=== PATIENT | female | born 1985 | race Hispanic/Latino ===

== ENCOUNTER 2018-09-21 21:02 | Emergency (ER) | payer OTHER ==
--- OUTSIDE RECORDS SUMMARY | 2018-09-21 21:04 | XMS REPORT ---
:1985 [facility] Address [address] [place] [address] [place] [address] Care Team Providers Name Role Phone Unavailable Unavailable Unavailable Problems This patient has no known problems. Allergies, Adverse Reactions, Alerts This patient has no known allergies or adverse reactions. Medications This patient has no known medications.
[2018-09-21 22:26] LABS: Urine Blood 2+ (NEG); Urine Glucose NEGATIVE (NEG); Urine Protein TRACE (NEG)
[2018-09-21] MEDS ORDERED: PROMETHAZINE 25 MG TABLET ONE (22:29)
[2018-09-21] MEDS ORDERED: OSELTAMIVIR 75 MG CAP ONE (22:29)
[2018-09-21] MEDS ORDERED: HYDROCODONE/CHLORPHEN 5 ML/OSYR ONE (22:29)
--- NOTE | 2018-09-21 22:31 | ER ---
Nurse's Notes [facility] Name: Lauren Miller Age: 33 yrs Sex: Female : 1985 Arrival Date: 09/21/2018 Time: 21:03 Bed 15 Private MD: Diagnosis: Influenza due to other identified influenza virus Presentation: 09/21 21:04 Presenting complaint: Patient states: Fever x 2 days, dry cough, pain to chest from lp1 coughing; "Just talking I feel like I get really winded". Transition of care: patient was not received from another setting of care. Onset of symptoms was September 19, 2018. Risk Assessment: Do you want to hurt yourself or someone else? Patient reports no desire to harm self or others. Initial Sepsis Screen: Does the patient meet any 2 criteria? No. Patient's initial sepsis screen is negative. Does the patient have a suspected source of infection? No. Patient's initial sepsis screen is negative. Care prior to arrival: None. 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 - Social history:: Smoking status: Patient uses tobacco products, denies chronic smoking, but will smoke occasionally. - Ebola Screening: : No symptoms or risks identified at this time. Screenin:10 Abuse screen: Denies threats or abuse. Nutritional screening: No deficits noted. jb4 Tuberculosis screening: No symptoms or risk factors identified. Fall Risk None identified. Assessment: 21:10 General: Appears in no apparent distress. uncomfortable, Behavior is calm, cooperative, jb4 appropriate for age. Pain: Complains of pain in forehead and anterior aspect of left upper chest Pain does not radiate. Pain currently is 8 out of 10 on a pain scale. Quality of pain is described as pressure, stabbing. Neuro: Level of Consciousness is awake, alert, obeys commands, Oriented to person, place, time, situation. Cardiovascular: Patient's skin is warm and dry. Respiratory: Airway is patent Respiratory effort is even, unlabored, Respiratory pattern is regular, symmetrical, Breath sounds are clear bilaterally. GI: Reports nausea. : No signs and/or symptoms were reported regarding the genitourinary system. EENT: No signs and/or symptoms were reported regarding the EENT system. Derm: Skin is intact, Skin is pink, warm \\T\\ dry. Musculoskeletal: Circulation, motion, and sensation intact. 22:00 Reassessment: Patient appears in no apparent distress at this time. Patient and/or jb4 family updated on plan of care and expected duration. Pain level reassessed. Patient is alert, oriented x 3, equal unlabored respirations, skin warm/dry/pink. 22:42 Reassessment: Patient appears in no apparent distress at this time. Patient and/or jb4 family updated on plan of care and expected duration. Pain level reassessed. Patient is alert, oriented x 3, equal unlabored respirations, skin warm/dry/pink. Vital Signs: 21:06 BP 141 / 88; Pulse 113; Resp 18; Temp 100(O); Pulse Ox 98% on R/A; Weight 92.99 kg; lp1 Height 5 ft. 7 in. (170.18 cm); Pain 8/10; 22:21 BP 133 / 81; Pulse 100; Resp 18; Pulse Ox 97% ; jb4 21:06 Body Mass Index 32.11 (92.99 kg, 170.18 cm) lp1 ED Course: 21:03 Patient arrived in ED. do 21:05 Triage completed. lp1 21:07 Arm band placed on right wrist. lp1 21:10 Patient has correct armband on for positive identification. Bed in low position. Call jb4 light in reach. Side rails up X 1. Pulse ox on. NIBP on. 21:17 Tay Salas, RN is Primary Nurse. jb4 21:32 Pinky Buckley FNP-C is PHCP. snw 21:32 Trever Avery MD is Attending Physician. snw 21:51 XRAY Chest Pa And Lat (2 Views) In Process Unspecified. EDMS 22:43 No provider procedures requiring assistance completed. Patient did not have IV access jb4 during this emergency room visit. Administered Medications: 22: Drug: Tamiflu 75 mg Route: PO; jb4 :44 Follow up: Response: No adverse reaction jb4 22: Drug: Tussionex Pennkinetic ER 5 ml Route: PO; jb4 :44 Follow up: Response: No adverse reaction; Marked relief of symptoms jb4 22: Drug: Phenergan 25 mg Route: PO; jb4 :44 Follow up: Response: No adverse reaction; Nausea is decreased jb4 Outcome: :31 Discharge ordered by . stevo 22:43 Discharged to home ambulatory, with significant other. jb4 :43 Condition: stable :43 Discharge instructions given to patient, significant other, Instructed on discharge instructions, follow up and referral plans. medication usage, Demonstrated understanding of instructions, follow-up care, medications, Prescriptions given X 2. 22:45 Patient left the ED. jb4 Signatures: Dispatcher [employer] EDWI Pinky Buckley, KILN PUSHER-C KILN PUSHER-Csnw Adriana Hood, RN RN lp1 Elyssa Rodriguez James, RN RN jb4
--- NOTE | 2018-09-21 22:31 | EDPHYS ---
Physician Documentation [facility] Name: Lauren Miller Age: 33 yrs Sex: Female : 1985 Arrival Date: 09/21/2018 Time: 21:03 Bed 15 Private MD: ED Physician Trever Avery HPI: 09/21 22:09 This 33 yrs old Female presents to ER via Wheelchair with complaints of Fever, snw Shortness Of Breath, Cough, Chest Pain. 22:09 The patient reports fever, that was measured at 102.6 degrees Fahrenheit. Onset: The snw symptoms/episode began/occurred suddenly. Modifying factors: The patient has had contact with sick. Severity of symptoms: At their worst the symptoms were moderate. It is unknown whether or not the patient has had similar symptoms in the past. The patient has been recently seen by a physician: 2 week(s) ago, with similar presenting complaints, and apparently given a diagnosis of Sinusitis, was given a prescription for antibiotics. 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 - Social history:: Smoking status: Patient uses tobacco products, denies chronic smoking, but will smoke occasionally. - Ebola Screening: : No symptoms or risks identified at this time. ROS: 22:09 Eyes: Negative for injury, pain, redness, and discharge, ENT: Negative for injury, snw pain, and discharge, Neck: Negative for injury, pain, and swelling, Cardiovascular: Negative for chest pain, palpitations, and edema. 22:09 Abdomen/GI: Negative for abdominal pain, nausea, vomiting, diarrhea, and constipation, Back: Negative for injury and pain, : Negative for injury, bleeding, discharge, and swelling, MS/Extremity: Negative for injury and deformity, Skin: Negative for injury, rash, and discoloration. 22:09 Constitutional: Positive for body aches, fatigue, fever, malaise. 22:09 Respiratory: Positive for cough, shortness of breath, on exertion. 22:09 Neuro: Positive for headache. Exam: 22:02 Constitutional: This is a well developed, well nourished patient who is awake, alert, snw and in no acute distress. Head/Face: Normocephalic, atraumatic. Eyes: Pupils equal round and reactive to light, extra-ocular motions intact. Lids and lashes normal. Conjunctiva and sclera are non-icteric and not injected. Cornea within normal limits. Periorbital areas with no swelling, redness, or edema. ENT: Nares patent. No nasal discharge, no septal abnormalities noted. Tympanic membranes are normal and external auditory canals are clear. Oropharynx with no redness, swelling, or masses, exudates, or evidence of obstruction, uvula midline. Mucous membranes moist. Neck: Trachea midline, no thyromegaly or masses palpated, and no cervical lymphadenopathy. Supple, full range of motion without nuchal rigidity, or vertebral point tenderness. No Meningismus. Chest/axilla: Normal chest wall appearance and motion. Nontender with no deformity. No lesions are appreciated. 22:02 Respiratory: Lungs have equal breath sounds bilaterally, clear to auscultation and percussion. No rales, rhonchi or wheezes noted. No increased work of breathing, no retractions or nasal flaring. Abdomen/GI: Soft, non-tender, with normal bowel sounds. No distension or tympany. No guarding or rebound. No evidence of tenderness throughout. Back: No spinal tenderness. No costovertebral tenderness. Full range of motion. Skin: Warm, dry with normal turgor. Normal color with no rashes, no lesions, and no evidence of cellulitis. MS/ Extremity: Pulses equal, no cyanosis. Neurovascular intact. Full, normal range of motion. Neuro: Awake and alert, GCS 15, oriented to person, place, time, and situation. Cranial nerves II-XII grossly intact. Motor strength 5/5 in all extremities. Sensory grossly intact. Cerebellar exam normal. Normal gait. Psych: Awake, alert, with orientation to person, place and time. Behavior, mood, and affect are within normal limits. 22:02 Cardiovascular: Rate: tachycardic, Rhythm: regular, Pulses: no pulse deficits are appreciated. Vital Signs: 21:06 BP 141 / 88; Pulse 113; Resp 18; Temp 100(O); Pulse Ox 98% on R/A; Weight 92.99 kg; lp1 Height 5 ft. 7 in. (170.18 cm); Pain 8/10; 22:21 BP 133 / 81; Pulse 100; Resp 18; Pulse Ox 97% ; jb4 21:06 Body Mass Index 32.11 (92.99 kg, 170.18 cm) lp1 MDM: 21:33 Patient medically screened. adonay 22:36 Data reviewed: vital signs, nurses notes. Data interpreted: Pulse oximetry: on room air snw is 97 %. Interpretation: normal. Counseling: I had a detailed discussion with the patient and/or guardian regarding: the historical points, exam findings, and any diagnostic results supporting the discharge/admit diagnosis, the presence of at least one elevated blood pressure reading (>120/80) during this emergency department visit, lab results, radiology results, the need for outpatient follow up, to return to the emergency department if symptoms worsen or persist or if there are any questions or concerns that arise at home. 09/21 21:33 Order name: Flu; Complete Time: 22:14 snw 09/21 22:11 Order name: Urine Dipstick--Ancillary (enter results); Complete Time: 22:37 mw2 09/21 21:33 Order name: XRAY Chest Pa And Lat (2 Views) snw 09/21 22:11 Order name: Urine --Ancillary (enter results); Complete Time: 22:37 mw2 09/21 21:33 Order name: Urine Test (obtain specimen); Complete Time: 22:12 snw 09/21 21:33 Order name: Urine Dipstick-Ancillary (obtain specimen); Complete Time: 22:12 snw Administered Medications: 22:22 Drug: Tamiflu 75 mg Route: PO; jb4 22:44 Follow up: Response: No adverse reaction jb4 22:22 Drug: Tussionex Pennkinetic ER 5 ml Route: PO; jb4 22:44 Follow up: Response: No adverse reaction; Marked relief of symptoms jb4 22:22 Drug: Phenergan 25 mg Route: PO; jb4 22:44 Follow up: Response: No adverse reaction; Nausea is decreased jb4 Disposition: 09/21/18 22:31 Discharged to Home. Impression: Influenza due to other identified influenza virus. - Condition is Stable. - Discharge Instructions: Influenza, Adult. - Prescriptions for Tamiflu 75 mg Oral Capsule - take 1 capsule by ORAL route every 12 hours for 5 days; 10 capsule. promethazine 25 mg Oral Tablet - take 1 tablet by ORAL route every 6 hours As needed; 20 tablet. - Work release form, Medication Reconciliation Form, Thank You Letter, Antibiotic Education, Prescription Opioid Use form. - Follow up: Private Physician; When: 2 - 3 days; Reason: Recheck today's complaints, Continuance of care, Re-evaluation by your physician. Follow up: Emergency Department; When: As needed; Reason: Worsening of condition. Signatures: Dispatcher [employer] EDMS Trever Avery MD MD cha Therrien, Shelly, SALES AUDIT CLERK-C SALES AUDIT CLERK-Csnw Adriana Hood RN RN lp1 Tay Salas RN RN jb4 Corrections: (The following items were deleted from the chart) 22:45 22:31 09/21/2018 22:31 Discharged to Home. Impression: Influenza due to other jb4 identified influenza virus. Condition is Stable. Forms are Medication Reconciliation Form, Thank You Letter, Antibiotic Education, Prescription Opioid Use. Follow up: Private Physician; When: 2 - 3 days; Reason: Recheck today's complaints, Continuance of care, Re-evaluation by your physician. Follow up: Emergency Department; When: As needed; Reason: Worsening of condition. snw
--- NOTE | 2018-09-22 08:25 | RAD REPORT ---
EXAM DESCRIPTION: RAD - Chest Pa And Lat (2 Views) - 09/21/2018 9:52 pm CLINICAL HISTORY: Cough;Fever Chest pain. COMPARISON: Chest Single View dated 09/01/2017 FINDINGS: The lungs are clear. The heart is normal in size. No displaced fractures. IMPRESSION: No acute or concerning finding suspected.
== END 2018-09-21 22:45 | disposition home or self-care (01) ==
LOC: ER 21:02
DX: J10.1 Influenza due to other identified influenza virus with other respiratory manifestations (principal); Z72.0 Tobacco use
CPT/HCPCS: 71046; 81003; 81025; 87804; 99284

== ENCOUNTER 2020-10-05 06:18 | Emergency (ER) | payer OTHER ==
--- OUTSIDE RECORDS SUMMARY | 2020-10-05 06:20 | XMS REPORT | Continuity of Care Document ---
:1985 Author Organization [facility] Address [address] [place] [address] [place] [address] Care Team Providers Name Role Phone [facility]ON[facility] TECH Attending Clinician Pob1, Care Clinic Attending Clinician Unavailable Problems This patient has no known problems. Allergies, Adverse Reactions, Alerts This patient has no known allergies or adverse reactions. Medications This patient has no known medications. Procedures This patient has no known procedures. Encounters Start End Encounter Admission Attending Care Care Encounter Source Date/Time Date/Time Type Type Clinicians Facility Department ID 2020-01-24 2020-01-24 Telephone Heber [facility] [id number] 00:00:00 00:00:00 [facility] [id number] [place] [id number] Professio [phone] [address]al [address] 2020-01-22 2020-01-22 Urgent Pob1, Acute [facility] [id number] 09:24:01 13:00:11 [facility] [id number] [place] [id number] Professio [phone] nal [address] Results This patient has no known results.
[2020-10-05 06:37] LABS: Urine Blood 1+ (Negative); Urine Glucose Negative (Negative); Urine Protein Negative (Negative); Urine Specific Gravity >=1.030 (1.005-1.030)
[2020-10-05] MEDS ORDERED: PROMETHAZINE INJ 25 MG/ML AMP ONE (07:26)
[2020-10-05] MEDS ORDERED: NA CHLORIDE 0.9% 1,000 ML ONE (07:26)
[2020-10-05 07:37] LABS: Protime INR 1.03
[2020-10-05 07:38] LABS: Absolute Lymphocytes (CBC) 2.6 K/uL (0.7-4.9); Basophils % 0.8 % (0-1.3); Hematocrit 41.6 % (36.0-45.0); Lymphocytes % 29.1 % (15.3-44.8); MPV 7.9 fL (7.6-11.3); RBC Red Blood Cell Count 4.63 M/uL (3.86-4.86)
[2020-10-05 07:53] LABS: ALT/SGPT 49 U/L (12-78); AST/SGOT 18 U/L (15-37); Albumin 3.7 g/dL (3.4-5.0); Alkaline Phosphatase 55 U/L (45-117); BUN Blood Urea Nitrogen 9 mg/dL (7-18); Bicarbonate 23 mmol/L (21-32); Bilirubin Direct 0.2 mg/dL (0-0.2); Bilirubin Total 1.1 mg/dL (0.2-1.0); Glucose Level 98 mg/dL (74-106); Magnesium 2.4 mg/dL (1.8-2.4); NT PRO-BNP 12 pg/mL (<125); Potassium 3.7 mmol/L (3.5-5.1); Protein, Total 7.1 g/dL (6.4-8.2); Sodium Level 140 mmol/L (136-145); Troponin (Emerg Dept Use Only) < 0.02 ng/mL (0.0-0.045)
--- NOTE | 2020-10-05 08:03 | RAD REPORT ---
EXAM DESCRIPTION: CT - Head Brain Wo Cont - 10/05/2020 7:35 am CLINICAL HISTORY: DIZZINESS Headache, drowsiness COMPARISON: No comparisons TECHNIQUE: All CT scans are performed using dose optimization technique as appropriate and may inclu de automated exposure control or mA/KV adjustment according to patient size. FINDINGS: No intracranial hemorrhage, hydrocephalus or extra-axial fluid collection.No areas of brai n edema or evidence of midline shift. The paranasal sinuses and mastoids are clear. The calvarium is intact. IMPRESSION: No acute intracranial abnormality.
--- NOTE | 2020-10-05 08:59 | ER ---
Nurse's Notes [facility] Name: Lauren Miller Age: 35 yrs Sex: Female : 1985 Arrival Date: 10/05/2020 Time: 06:21 Bed 16 Private MD: Diagnosis: Chest pain, unspecified;Dizziness and giddiness;Vomiting Presentation: 10/05 06:38 Chief complaint: Patient states: complains of chest pain that started 4 hours ago along jm8 with n/v that has been going on intermittently for 3 months. Coronavirus screen: Client denies travel out of the [place] in the last 14 days. Ebola Screen: Patient negative for fever greater than or equal to 101.5 degrees Fahrenheit, and additional compatible Ebola Virus Disease symptoms Patient denies exposure to infectious person. Patient denies travel to an Ebola-affected area in the 21 days before illness onset. Initial Sepsis Screen: Does the patient meet any 2 criteria? No. Patient's initial sepsis screen is negative. Does the patient have a suspected source of infection? No. Patient's initial sepsis screen is negative. Risk Assessment: Do you want to hurt yourself or someone else? Patient reports no desire to harm self or others. Onset of symptoms was October 05, 2020 at 01:00. 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 - Social history:: Smoking status: unknown. Screenin:50 Abuse screen: Denies threats or abuse. Denies injuries from another. Nutritional [facility] screening: No deficits noted. Tuberculosis screening: No symptoms or risk factors identified. Fall Risk None identified. Assessment: 06:48 General: Appears in no apparent distress. Behavior is calm, cooperative, appropriate [facility] for age, Denies fever, feeling ill, fatigue, chills. Pain: Complains of pain in left upper shoulder Pain radiates to left neck Pain began 4 hours ago. Pain: Also complains of no other associated symptoms. nausea. Neuro: No deficits noted. Cardiovascular: Reports chest pain, since 0100. Respiratory: No deficits noted. Airway Trachea midline Respiratory effort is even, unlabored. GI: No deficits noted. : No deficits noted. EENT: No deficits noted. 07:10 Reassessment: No changes from previously documented assessment. Patient and/or family ll1 updated on plan of care and expected duration. Pain level reassessed. Vital Signs: 06:38 BP 125 / 82; Pulse 66; Resp 16; Temp 98.2; Pulse Ox 98% on R/A; Weight 97.52 kg; Height jm8 5 ft. 7 in. (170.18 cm) (R); 07:39 BP 126 / 82; Pulse 63; Resp 16; Pulse Ox 99% ; ll1 09:12 BP 104 / 76; Pulse 61; Resp 16; Pulse Ox 99% on R/A; ll1 06:38 Body Mass Index 33.67 (97.52 kg, 170.18 cm) jm8 ED Course: 06:21 Patient arrived in ED. bp1 06:29 Solomon Sawyer MD is Attending Physician. mh7 06:44 Triage completed. jm8 06:47 Arm band placed on right wrist. jm8 06:50 Patient has correct armband on for positive identification. Call light in reach. Side jm8 rails up X2. customer account technician on. Pulse ox on. NIBP on. 06:50 No provider procedures requiring assistance completed. Patient maintains SpO2 jm8 saturation greater than 95% on room air. 07:07 Inserted saline lock: 20 gauge in right antecubital area, using aseptic technique. jm8 07:08 XRAY Chest (1 view) In Process Unspecified. EDMS 07:13 Freddie Hickey, RN is Primary Nurse. ll1 07:16 Attending Physician role handed off by Solomon Sawyer MD adonay 07:16 Trever Avery MD is Attending Physician. adonay 07:35 CT Head Brain wo Cont In Process Unspecified. EDMS 08:58 Isai Hummel MD is Referral Physician. adonay 08:58 Paxton Carvajal MD is Referral Physician. adonay 09:13 IV discontinued, intact, bleeding controlled, No redness/swelling at site. Pressure ll1 dressing applied. Administered Medications: 07:20 Drug: Phenergan (promethazine) 12.5 mg Route: IVP; Site: right antecubital; 1 09:12 Follow up: Response: No adverse reaction; RASS: Alert and Calm (0) [facility] 07:20 Drug: NS 0.9% 1000 ml Route: IV; Rate: 1000 ml; Site: right antecubital; ll1 09:11 Follow up: Response: No adverse reaction; RASS: Alert and Calm (0); IV Status: ll1 Completed infusion; IV Intake: 1000ml Intake: 09:11 IV: 1000ml; Total: 1000ml. [facility] Outcome: 08:58 Discharge ordered by . adonay 09:12 Discharged to home ambulatory. [facility] 09:12 Condition: stable 09:12 Discharge instructions given to patient, Instructed on discharge instructions, follow up and referral plans. no drinking with medication, no driving heavy equipment, medication usage, Demonstrated understanding of instructions, follow-up care, medications, Prescriptions given X 4. 09:13 [address] [facility] Signatures: Dispatcher [employer] EDMS Trever Avery MD MD cha Lewis, Lynsay, RN RN ll1 Clare Washington Maurice, MD MD mh7 Jonatan Wang, RN RN jm8
--- NOTE | 2020-10-05 08:59 | EDPHYS ---
Physician Documentation [facility] Name: Lauren Miller Age: 35 yrs Sex: Female : 1985 Arrival Date: 10/05/2020 Time: 06:21 Bed 16 Private MD: ED Physician Trever Avery HPI: 10/05 06:45 This 35 yrs old Female presents to ER via Ambulatory with complaints of Chest mh7 Pain, Vomiting, Dizziness. 06:45 The patient or guardian reports chest pain that is located primarily in the anterior mh7 chest wall, left. The pain radiates to the left arm. Associated signs and symptoms: Pertinent positives: dizziness, nausea, vomiting, for a few weeks, Pertinent negatives: abdominal pain, cough, diaphoresis, headache, lower extremity pain, lower extremity swelling, lightheadedness, near syncope, palpitations, recent travel, shortness of breath, syncope. The chest pain is described as sharp. Duration: The patient or guardian reports multiple episodes, that are intermittent, that wax and wane, with no pattern. Modifying factors: The symptoms are alleviated by nothing. the symptoms are aggravated by nothing. Severity of pain: At its worst the pain was moderate today, in the emergency department the pain has improved moderately. 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 - Social history:: Smoking status: unknown. ROS: 06:45 Constitutional: Negative for fever, chills, and weight loss, Eyes: Negative for injury, mh7 pain, redness, and discharge, ENT: Negative for injury, pain, and discharge, Neck: Negative for injury, pain, and swelling, Respiratory: Negative for shortness of breath, cough, wheezing, and pleuritic chest pain, Back: Negative for injury and pain, : Negative for injury, bleeding, discharge, and swelling, MS/Extremity: Negative for injury and deformity, Skin: Negative for injury, rash, and discoloration, Psych: Negative for depression, anxiety, suicide ideation, homicidal ideation, and hallucinations, Allergy/Immunology: Negative for hives, rash, and allergies, Endocrine: Negative for neck swelling, polydipsia, polyuria, polyphagia, and marked weight changes, Hematologic/Lymphatic: Negative for swollen nodes, abnormal bleeding, and unusual bruising. Exam: 06:45 Constitutional: This is a well developed, well nourished patient who is awake, alert, mh7 and in no acute distress. Head/Face: Normocephalic, atraumatic. Eyes: Pupils equal round and reactive to light, extra-ocular motions intact. Lids and lashes normal. Conjunctiva and sclera are non-icteric and not injected. Cornea within normal limits. Periorbital areas with no swelling, redness, or edema. ENT: Nares patent. No nasal discharge, no septal abnormalities noted. Tympanic membranes are normal and external auditory canals are clear. Oropharynx with no redness, swelling, or masses, exudates, or evidence of obstruction, uvula midline. Mucous membranes moist. Neck: Trachea midline, no thyromegaly or masses palpated, and no cervical lymphadenopathy. Supple, full range of motion without nuchal rigidity, or vertebral point tenderness. No Meningismus. 06:45 Cardiovascular: Regular rate and rhythm with a normal S1 and S2. No gallops, murmurs, or rubs. Normal PMI, no JVD. No pulse deficits. Respiratory: Lungs have equal breath sounds bilaterally, clear to auscultation and percussion. No rales, rhonchi or wheezes noted. No increased work of breathing, no retractions or nasal flaring. Abdomen/GI: Soft, non-tender, with normal bowel sounds. No distension or tympany. No guarding or rebound. No evidence of tenderness throughout. Back: No spinal tenderness. No costovertebral tenderness. Full range of motion. Skin: Warm, dry with normal turgor. Normal color with no rashes, no lesions, and no evidence of cellulitis. MS/ Extremity: Pulses equal, no cyanosis. Neurovascular intact. Full, normal range of motion. Neuro: Awake and alert, GCS 15, oriented to person, place, time, and situation. Cranial nerves II-XII grossly intact. Motor strength 5/5 in all extremities. Sensory grossly intact. Cerebellar exam normal. Normal gait. Psych: Awake, alert, with orientation to person, place and time. Behavior, mood, and affect are within normal limits. 06:45 Chest/axilla: Inspection: normal, Palpation: tenderness, that is moderate, of the anterior aspect of left upper chest, that partially reproduces the patient's complaints, Axilla: are normal, Lymph nodes: lymphadenopathy is not appreciated. 08:37 ECG was reviewed by the Attending Physician. adonay 08:57 Musculoskeletal/extremity: DVT Exam: No signs of deep vein thrombosis. no pain, no adonay swelling, no tenderness, negative Homans' sign noted on exam, no appreciated bluish discoloration, no erythema, no increased warmth, no trauma, no stasis, no hc state. no hx pe , no hx dvt. Vital Signs: 06:38 BP 125 / 82; Pulse 66; Resp 16; Temp 98.2; Pulse Ox 98% on R/A; Weight 97.52 kg; Height jm8 5 ft. 7 in. (170.18 cm) (R); 07:39 BP 126 / 82; Pulse 63; Resp 16; Pulse Ox 99% ; ll1 09:12 BP 104 / 76; Pulse 61; Resp 16; Pulse Ox 99% on R/A; ll1 06:38 Body Mass Index 33.67 (97.52 kg, 170.18 cm) jm8 MDM: 07:09 Transition of care: After a detail discussion of the patient's case, care is mh7 transferred to Trever Avery MD. 07:16 Patient medically screened. adonay 08:35 Differential diagnosis: abnormal EKG, acute pericarditis, chest wall pain, adonay cholecystitis, Cholelithiasis pleurisy, pulmonary embolus, stable angina, unstable angina. HEART Score: History: Slightly Suspicious (0), ECG: Normal (0), Age: < or = 45 years (0), Risk Factors: No Risk Factors Known (0), Troponin: < or = 1 x Normal Limit (0). The patient's deep vein thrombosis risk score was calculated as follows: Total Score: 0. This patient was found to be at low risk for a deep vein thrombosis by using the Well's assessment criteria. The patient's pulmonary embolism risk score was calculated as follows: Total Score: 0-2 points. This patient was found to be at low risk for a pulmonary embolism by using the Well's assessment criteria. MANASA Risk Score: TOTAL SCORE = 0. Data reviewed: vital signs, nurses notes, lab test result(s), EKG, radiologic studies, CT scan, plain films. Data interpreted: desk monitor: rate is 63 beats/min, rhythm is regular, Pulse oximetry: on room air. Test interpretation: by ED physician or midlevel provider: ECG, plain radiologic studies. Counseling: I had a detailed discussion with the patient and/or guardian regarding: the historical points, exam findings, and any diagnostic results supporting the discharge/admit diagnosis, lab results, radiology results, the need for outpatient follow up, for definitive care, a railroad crossing protection maintainer, a family practitioner, a neurologist. 10/05 06:36 Order name: Urine Dipstick-Ancillary; Complete Time: 06:57 [facility] 10/05 06:39 Order name: Basic Metabolic Panel [facility] 10/05 06:39 Order name: CBC with Diff [facility] 10/05 06:39 Order name: LFT's; Complete Time: 08:05 [facility] 10/05 06:39 Order name: Magnesium; Complete Time: 08:05 [facility] 10/05 06:39 Order name: NT PRO-BNP; Complete Time: 08:05 [facility] 10/05 06:39 Order name: PT-INR; Complete Time: 08:05 [facility] 10/05 06:39 Order name: Troponin (emerg Dept Use Only); Complete Time: 08:05 [facility] 10/05 06:39 Order name: XRAY Chest (1 view); Complete Time: 19:30 [facility] 10/05 06:40 Order name: Urine --Ancillary (enter results); Complete Time: 08:05 10/05 06:40 Order name: Basic Metabolic Panel; Complete Time: 08:05 [facility] 10/05 06:40 Order name: CBC with Automated Diff; Complete Time: 08:05 [facility] 10/05 07:00 Order name: CT Head Brain wo Cont; Complete Time: 08:05 [facility] 10/05 07:17 Order name: D-Dimer; Complete Time: 08:57 [facility] 10/05 06:39 Order name: EKG; Complete Time: 06:40 [facility] 10/05 06:39 Order name: Cardiac monitoring; Complete Time: 06:51 [facility] 10/05 06:39 Order name: EKG - Nurse/Tech; Complete Time: 06:51 10/05 06:39 Order name: IV Saline Lock; Complete Time: 07:05 10/05 06:39 Order name: Labs collected and sent; Complete Time: 07:06 10/05 06:39 Order name: O2 Per Protocol; Complete Time: 07:06 10/05 06:39 Order name: O2 Sat Monitoring; Complete Time: : EC:37 Rate is 71 beats/min. Rhythm is regular. QRS [place] is Normal. HI interval is normal. QRS adonay interval is normal. QT interval is normal. No Q waves. T waves are Normal. No ST changes noted. Clinical impression: Normal ECG and No evidence of ischemia. Interpreted by me. Reviewed by me. Administered Medications: 07:20 Drug: Phenergan (promethazine) 12.5 mg Route: IVP; Site: right antecubital; 1 09:12 Follow up: Response: No adverse reaction; RASS: Alert and Calm (0) [facility] 07:20 Drug: NS 0.9% 1000 ml Route: IV; Rate: 1000 ml; Site: right antecubital; 1 09:11 Follow up: Response: No adverse reaction; RASS: Alert and Calm (0); IV Status: ll1 Completed infusion; IV Intake: 1000ml Disposition: 10/05/20 08:58 Discharged to Home. Impression: Chest pain, unspecified, Dizziness and giddiness, Vomiting. - Condition is Stable. - Discharge Instructions: Nonspecific Chest Pain, Dizziness, Nausea and Vomiting, Adult, Nausea and Vomiting, Adult, [id number]-[id number], Nonspecific Chest Pain, Ryhw-xr-Quct, Aspirin and Your Heart, Dizziness, Sevs-vy-Jvph. - Prescriptions for Fioricet with Codeine 50- 325-40-30 mg Oral capsule - take 1 capsule by ORAL route every 4 hours as needed not to exceed 6 capsules per 24hrs; 20 capsule. Meclizine 25 mg Oral Tablet - take 1 tablet by ORAL route every 8 hours As needed; 30 tablet. Pepcid 20 mg Oral Tablet - take 1 tablet by ORAL route every 12 hours for 10 days; 20 tablet. Zofran 4 mg Oral Tablet - take 1 tablet by ORAL route every 12 hours As needed; 20 tablet. - Medication Reconciliation Form, Thank You Letter, Antibiotic Education, Prescription Opioid Use, Work release form, Family Work Release form. - Follow up: Private Physician; When: 2 - 3 days; Reason: Recheck today's complaints, Continuance of care, Re-evaluation by your physician. Follow up: Isia Hummel; When: 2 - 3 days; Reason: Recheck today's complaints, Re-evaluation by your physician. Follow up: Paxton Carvajal; When: 2 - 3 days; Reason: Recheck today's complaints, Re-evaluation by your physician. - Problem is new. - Symptoms have improved. Signatures: Dispatcher [employer] EDMS Trever Avery MD MD cha Lewis, Lynsay RN RN ll1 Solomon Sawyer MD MD mh7 Jonatan Wang RN RN jm8 Corrections: (The following items were deleted from the chart) 09:13 08:58 10/05/2020 08:58 Discharged to Home. Impression: Chest pain, unspecified; ll1 Dizziness and giddiness; Vomiting. Condition is Stable. Discharge Instructions: Nonspecific Chest Pain, Dizziness, Nausea and Vomiting, Adult, Nausea and Vomiting, Adult, [id number]-[id number], Nonspecific Chest Pain, Pmor-hc-Mqbd, Aspirin and Your Heart, Dizziness, Ndeu-xy-Wfyc. Prescriptions for Fioricet with Codeine 13-689-50-30 mg Oral capsule - take 1 capsule by ORAL route every 4 hours as needed not to exceed 6 capsules per 24hrs; 20 capsule, Meclizine 25 mg Oral Tablet - take 1 tablet by ORAL route every 8 hours As needed; 30 tablet, Pepcid 20 mg Oral Tablet - take 1 tablet by ORAL route every 12 hours for 10 days; 20 tablet, Zofran 4 mg Oral Tablet - take 1 tablet by ORAL route every 12 hours As needed; 20 tablet. and Forms are Medication Reconciliation Form, Thank You Letter, Antibiotic Education, Prescription Opioid Use. Follow up: Private Physician; When: 2 - 3 days; Reason: Recheck today's complaints, Continuance of care, Re-evaluation by your physician. Follow up: Isai Hummel; When: 2 - 3 days; Reason: Recheck today's complaints, Re-evaluation by your physician. Follow up: Paxton aCrvajal; When: 2 - 3 days; Reason: Recheck today's complaints, Re-evaluation by your physician. Problem is new. Symptoms have improved. adonay
[2020-10-05 09:22] VITALS: TEMP 98.2
[2020-10-05 09:23] VITALS: O2SAT 99
[2020-10-05 09:24] VITALS: BP 104/76
--- NOTE | 2020-10-05 11:44 | RAD REPORT ---
EXAM DESCRIPTION: RAD - Chest Single View - 10/05/2020 7:08 am CLINICAL HISTORY: CHEST PAIN Chest pain. COMPARISON: No comparisons FINDINGS: Portable technique limits examination quality. The lungs are grossly clear. The heart is normal in size. No displaced fractures. IMPRESSION: No acute intrathoracic process suspected.
--- NOTE | 2020-10-06 08:18 | EKG ---
Test Date: 2020-10-05 Test Time: 06:49:09 Extension Course Coordinator: JENIFFER MEASUREMENT RESULTS: Intervals: Rate: 71 MD: 146 QRSD: 86 QT: 436 QTc: 473 [place]: P: 61 MD: 146 QRS: 29 T: 45 INTERPRETIVE STATEMENTS: Normal sinus rhythm Normal ECG Compared to ECG 09/01/2017 20:09:52 No significant changes Electronically Signed On 10-06-20 08:15:42 CDT by Isai Hummel
== END 2020-10-05 09:13 | disposition home or self-care (01) ==
LOC: ER 06:18
DX: R07.89 Other chest pain (principal); R11.10 Vomiting, unspecified; Z88.0 Allergy status to penicillin
CPT/HCPCS: 96361; 93005; 85025; 80048; 36415; 83735; 81025; 85610; 85379; 80076; 81003; 84484; 83880; 70450; 71045; 96374; 99285; J2550; J7030

== ENCOUNTER 2020-10-17 10:52 | Emergency (ER) | payer OTHER ==
--- OUTSIDE RECORDS SUMMARY | 2020-10-17 10:55 | XMS REPORT | Continuity of Care Document ---
:1985 Author Organization [facility] t Address [address] [place] [address] Care Team Providers Name Role Phone Heber LEASE EXAMINER Attending Clinician Pob1, Care Clinic Attending Clinician [...] Facility Department ID 2020-01-24 2020-01-24 Telephone Heber [facility] [id number] 00:00:00 00:00:00 [facility] [id number] [place] [id number] Professio [phone] nal [address] 2020-01-22 2020-01-22 Urgent Pob1, Acute [facility] [id number] 09:24:01 13:00:11 [facility] [id number] [place] [id number] Professio [phone] nal [address] Results This patient has no known results.
[2020-10-17] MEDS ORDERED: MECLIZINE HCL 12.5 MG TAB PO SCH (11:45)
--- NOTE | 2020-10-17 11:53 | RAD REPORT ---
EXAM DESCRIPTION: CT - Head Brain Wo Cont - 10/17/2020 11:46 am CLINICAL HISTORY: DIZZINESS Headache, drowsiness COMPARISON: Head Brain Wo Cont dated 10/05/2020 TECHNIQUE: All CT scans are performed using dose optimization technique as appropriate and may inclu de automated exposure control or mA/KV adjustment according to patient size. FINDINGS: No intracranial hemorrhage, hydrocephalus or extra-axial fluid collection.No areas of brai n edema or evidence of midline shift. The paranasal sinuses and mastoids are clear. The calvarium is intact. IMPRESSION: No acute intracranial abnormality.
[2020-10-17] MEDS ORDERED: ONDANSETRON 4 MG/2 ML VIAL ONE (11:54)
[2020-10-17] MEDS ORDERED: NA CHLORIDE 0.9% 1,000 ML ONE (11:55)
--- NOTE | 2020-10-17 11:56 | RAD REPORT ---
EXAM DESCRIPTION: RAD - Chest Single View - 10/17/2020 11:48 am CLINICAL HISTORY: dizziness Chest pain. COMPARISON: Chest Single View dated 10/05/2020; Chest Pa And Lat (2 Views) dated 09/21/2018; Chest Sin gle View dated 09/01/2017 FINDINGS: Portable technique limits examination quality. The lungs are grossly clear. The heart is normal in size. No displaced fractures. IMPRESSION: No acute intrathoracic process suspected.
[2020-10-17 12:19] LABS: Absolute Lymphocytes (CBC) 1.1 K/uL (0.7-4.9); Basophils % 0.3 % (0-1.3); Hematocrit 42.6 % (36.0-45.0); RBC Red Blood Cell Count 4.78 M/uL (3.86-4.86)
[2020-10-17 12:24] LABS: Urine Blood Trace-intact (Negative); Urine Glucose Negative (Negative); Urine Protein 1+ (Negative); Urine Specific Gravity 1.025 (1.005-1.030); Urine pH 5.5 (5.0-7.0)
[2020-10-17 12:33] LABS: ALT/SGPT 71 U/L (12-78); AST/SGOT 33 U/L (15-37); Alkaline Phosphatase 61 U/L (45-117); BUN Blood Urea Nitrogen 10 mg/dL (7-18); Bicarbonate 27 mmol/L (21-32); Bilirubin Direct 0.2 mg/dL (0-0.2); Glucose Level 104 mg/dL (74-106); Magnesium 3.3 mg/dL (1.8-2.4); NT PRO-BNP 38 pg/mL (<125); Protein, Total 7.5 g/dL (6.4-8.2); Sodium Level 141 mmol/L (136-145); Troponin (Emerg Dept Use Only) < 0.02 ng/mL (0.0-0.045)
--- NOTE | 2020-10-17 13:24 | RAD REPORT ---
EXAM DESCRIPTION: Kerry Angio10/17/2020 1:04 pm CLINICAL HISTORY: Dizziness COMPARISON: None TECHNIQUE: 50 cc Isovue 370 was administered intravenously. 3D MIP reconstruction performed All CT scans are performed using dose optimization technique as appropriate and may include automated exposure control or mA/KV adjustment according to patient size. FINDINGS: The common carotid, internal carotid and external carotid arteries bilaterally appear unr emarkable. The vertebral arteries are codominant without abnormality. IMPRESSION: Unremarkable exam NASCET criteria used. Mild 0-49% stenosis Moderate 50-69% stenosis Severe 70-99% stenosis
--- NOTE | 2020-10-17 13:32 | RAD REPORT ---
EXAM DESCRIPTION: CTHead angio10/17/2020 1:04 pm CLINICAL HISTORY: Dizziness COMPARISON: None TECHNIQUE: CT angiogram of the head was obtained. 3D MIPS reconstruction performed. All CT scans are performed using dose optimization technique as appropriate and may include automated exposure control or mA/KV adjustment according to patient size. FINDINGS: The basilar, internal carotid, anterior cerebral, middle cerebral and posterior cerebral a rteries are normal caliber. An aneurysm is not seen. A significant stenosis is not noted. IMPRESSION: Unremarkable CT angiogram head.
[2020-10-17] MEDS ORDERED: FENTANYL CITR 100 MCG/2 ML ONE (13:43)
[2020-10-17 14:05] LABS: Blood Morphology Comment NOT SEEN (NOT SEEN); Platelet Estimate ADEQ; White Blood Cell Scan OK (OK)
--- NOTE | 2020-10-17 15:33 | ER ---
Nurse's Notes [facility] Name: Lauren Miller Age: 35 yrs Sex: Female : 1985 Arrival Date: 10/17/2020 Time: 10:55 Bed 20 Private MD: Diagnosis: Vertigo;Vomiting Presentation: 10/17 11:00 Chief complaint: Patient states: nausea/vomiting that began today. Pt also reports back aa5 pain. Pt reports she took Zofran at home without relief. 11:00 Coronavirus screen: nausea, vomiting. Ebola Screen: Patient negative for fever greater aa5 than or equal to 101.5 degrees Fahrenheit, and additional compatible Ebola Virus Disease symptoms. Initial Sepsis Screen: Does the patient meet any 2 criteria? No. Patient's initial sepsis screen is negative. Does the patient have a suspected source of infection? No. Patient's initial sepsis screen is negative. Risk Assessment: Do you want to hurt yourself or someone else? Patient reports no desire to harm self or others. Onset of symptoms was October 2020. 11:00 Method Of Arrival: Ambulatory aa5 11:00 Acuity: DANIELLE 3 aa5 ENDODONTICS DENTIST: 11:13 LMP N/A - Irregular menses aa5 Historical: - Allergies: 11:14 PENICILLINS; aa5 11:14 Codeine (Upset stomach); aa5 - PMHx: 11:14 paricardial plerual effusion; pericarditis; aa5 - Immunization history:: Adult Immunizations up to date. - Social history:: Smoking status: unknown. Screenin:36 Abuse screen: Denies threats or abuse. Denies injuries from another. Nutritional tr6 screening: No deficits noted. Tuberculosis screening: No symptoms or risk factors identified. Fall Risk None identified. Assessment: 11:30 General: Appears distressed, Behavior is calm, cooperative, appropriate for age. Pain: tr6 Complains of pain in c/o pain in lower back. pt states "kidney pain". Neuro: No deficits noted. Cardiovascular: No deficits noted. Respiratory: No deficits noted. GI: No deficits noted. Abdomen is flat. : No deficits noted. EENT: No deficits noted. Derm: No deficits noted. Musculoskeletal: No deficits noted. 11:40 Reassessment: pt taken to CT. tr6 12:40 Reassessment: pt sleeping. at bedside. tr6 15:34 Reassessment: pt reports that she is less dizzy and her pain has improved. tr6 Vital Signs: 11:00 BP 126 / 85; Pulse 72; Resp 16 S; Temp 98.2(TE); Pulse Ox 96% on R/A; Weight 97.52 kg aa5 (R); Height 5 ft. 8 in. (172.72 cm) (R); Pain 8/10; 11:00 Body Mass Index 32.69 (97.52 kg, 172.72 cm) aa5 ED Course: 10:55 Patient arrived in ED. am2 11:00 Ori Johansen PA is PHCP. [facility] 11:00 Arm band placed on Patient placed in an exam room, on a stretcher. aa5 11:01 Trever Avery MD is Attending Physician. jmm 11:13 Triage completed. aa5 12:09 No provider procedures requiring assistance completed. Inserted saline lock: 20 gauge tr6 in right antecubital area, using aseptic technique. Blood collected. 15:33 Mary Ames MD is Referral Physician. jmm 15:37 Patient has correct armband on for positive identification. Call light in reach. Side tr6 rails up X 1. 15:37 IV discontinued, intact, bleeding controlled, No redness/swelling at site. Pressure tr6 dressing applied. Administered Medications: 12:25 Drug: NS 0.9% 1000 ml Route: IV; Rate: 1 bolus; Site: right antecubital; tr6 12:26 Drug: Zofran (Ondansetron) 4 mg Route: IVP; Site: right antecubital; tr6 12:26 Drug: Meclizine 50 mg Route: PO; tr6 13:51 Drug: fentaNYL (PF) 50 mcg Route: IVP; Site: right forearm; tr6 15:28 Not Given (Patient Refused): Valium (diazepam) 2 mg IVP once tr6 Outcome: 15:33 Discharge ordered by . jmm 15:37 Discharged to home ambulatory. tr6 15:37 Condition: stable 15:37 Discharge instructions given to patient, family, significant other. 16:26 Patient left the ED. tr6 Signatures: Ori Johansen PA PA jmm Calderon, Audri, RN RN aa5 Neal, Kell am2 Magy Stevenson RN RN tr6 Corrections: (The following items were deleted from the chart) 15:36 15:34 Reassessment: pt sleeping. at bedside tr6 tr6
--- NOTE | 2020-10-17 15:34 | EDPHYS ---
Physician Documentation [facility] Name: Lauren Miller Age: 35 yrs Sex: Female : 1985 Arrival Date: 10/17/2020 Time: 10:55 Bed 20 Private MD: ROBERT Physician Trever Avery HPI: 10/17 11:25 This 35 yrs old Female presents to ER via Ambulatory with complaints of jmm Nausea/Vomiting, Dizziness. 11:25 The patient presents to the emergency department with nausea, vomiting. Onset: The jmm symptoms/episode began/occurred gradually, 4 month(s) ago. Possible causes: unknown. The symptoms are aggravated by movement, The symptoms are alleviated by nothing. Associated signs and symptoms: Pertinent negatives: abdominal pain, fever. This is a 35 year old female with a history of pericarditis that presents to the ED with complaints of dizziness beginning approx 4 months ago with vomiting. Patient was advised to follow up with neuro. Patient states symptoms worsened yesterday. 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 - Social history:: Smoking status: unknown. ROS: 11:25 Constitutional: Negative for fever, chills, and weight loss, Cardiovascular: Negative jmm for chest pain, palpitations, and edema, Respiratory: Negative for shortness of breath, cough, wheezing, and pleuritic chest pain. 11:25 Abdomen/GI: Positive for vomiting. 11:25 All other systems are negative. Exam: 11:25 Constitutional: This is a well developed, well nourished patient who is awake, alert, jmm and in no acute distress. Head/Face: atraumatic. Eyes: EOMI, no conjunctival erythema appreciated ENT: Moist Mucus Membranes Neck: Trachea midline, Supple Chest/axilla: Normal chest wall appearance and motion. Cardiovascular: Regular rate and rhythm. No edema appreciated Respiratory: Normal respirations, no respiratory distress appreciated Abdomen/GI: Non distended, soft Back: Normal ROM Skin: General appearance color normal MS/ Extremity: Moves all extremities, no obvious deformities appreciated, no edema noted to the lower extremities Neuro: Awake and alert, normal gait Psych: Behavior is normal, Mood is normal, Patient is cooperative and pleasant Vital Signs: 11:00 BP 126 / 85; Pulse 72; Resp 16 S; Temp 98.2(TE); Pulse Ox 96% on R/A; Weight 97.52 kg aa5 (R); Height 5 ft. 8 in. (172.72 cm) (R); Pain 8/10; 11:00 Body Mass Index 32.69 (97.52 kg, 172.72 cm) aa5 MDM: 11:25 Patient medically screened. [facility] 15:30 Data reviewed: vital signs, nurses notes. Counseling: I had a detailed discussion with [facility] the patient and/or guardian regarding: the historical points, exam findings, and any diagnostic results supporting the discharge/admit diagnosis, lab results, radiology results, the need for outpatient follow up, to return to the emergency department if symptoms worsen or persist or if there are any questions or concerns that arise at home. ED course: Dizziness and vomiting relieved in the ED. Patient is alert and non toxic in appearance in the ED. No signs of resp distress. CTA is negative. I do not suspect central cause of vertigo. Patient advised to follow up with ENT. Patient is otherwise given strict return precautions. patient understood and agrees with the plan of care. . 10/17 11:27 Order name: Basic Metabolic Panel [facility] 10/17 11:27 Order name: CBC with Diff [facility] 10/17 11:27 Order name: LFT's [facility] 10/17 11:27 Order name: Magnesium [facility] 10/17 11:27 Order name: NT PRO-BNP [facility] 10/17 11:27 Order name: PT-INR [facility] 10/17 11:27 Order name: Troponin (emerg Dept Use Only) [facility] 10/17 12:24 Order name: Urine Dipstick-Ancillary; Complete Time: 12:36 [facility] 10/17 12:33 Order name: Basic Metabolic Panel; Complete Time: 12:36 [facility] 10/17 12:33 Order name: Liver (Hepatic) Function; Complete Time: 12:36 [facility] 10/17 12:33 Order name: Troponin (Emerg Dept Use Only); Complete Time: 12:36 [facility] 10/17 12:33 Order name: NT PRO-BNP; Complete Time: 12:36 [facility] 10/17 12:33 Order name: Magnesium; Complete Time: 12:36 [facility] 10/17 12:44 Order name: Protime (+INR); Complete Time: 13:09 [facility] 10/17 11:27 Order name: XRAY Chest (1 view) [facility] 10/17 11:27 Order name: EKG; Complete Time: 11:28 [facility] 10/17 11:27 Order name: CT Head Brain wo Cont [facility] 10/17 11:55 Order name: CT; Complete Time: 11:56 [facility] 10/17 11:57 Order name: RAD; Complete Time: 11:57 [facility] 10/17 12:38 Order name: CT Head Angio [facility] 10/17 12:38 Order name: CT Neck Angio [facility] 10/17 12:57 Order name: CBC with Automated Diff [facility] 10/17 13:25 Order name: CT; Complete Time: 13:30 [facility] 10/17 13:33 Order name: CT; Complete Time: 13:36 [facility] 10/17 14:05 Order name: CBC Smear Scan [facility] 10/17 11:27 Order name: Cardiac monitoring; Complete Time: 12:08 [facility] 10/17 11:27 Order name: EKG - Nurse/Tech; Complete Time: 12:25 [facility] 10/17 11:27 Order name: IV Saline Lock; Complete Time: 12:08 [facility] 10/17 11:27 Order name: Labs collected and sent; Complete Time: 12:09 [facility] 10/17 11:27 Order name: O2 Per Protocol; Complete Time: 12:09 [facility] 10/17 11:27 Order name: O2 Sat Monitoring; Complete Time: 12:09 [facility] Administered Medications: 12:25 Drug: NS 0.9% 1000 ml Route: IV; Rate: 1 bolus; Site: right antecubital; tr6 12:26 Drug: Zofran (Ondansetron) 4 mg Route: IVP; Site: right antecubital; tr6 12:26 Drug: Meclizine 50 mg Route: PO; tr6 13:51 Drug: fentaNYL (PF) 50 mcg Route: IVP; Site: right forearm; tr6 15:28 Not Given (Patient Refused): Valium (diazepam) 2 mg IVP once tr6 Disposition: 10/18 07:26 Co-signature as Attending Physician, Trever Avery MD I agree with the assessment and adonay plan of care. Disposition: 10/17/20 15:33 Discharged to Home. Impression: Vertigo, Vomiting. - Condition is Stable. - Discharge Instructions: Benign Positional Vertigo, Wang Maneuver Self-Care. - Prescriptions for Meclizine 25 mg Oral Tablet - take 1 tablet by ORAL route every 8 hours As needed; 30 tablet. Reglan 10 mg Oral Tablet - take 1 tablet by ORAL route every 6 hours take 30 minutes before meals and at bedtime; 20 tablet. orphenadrine citrate 100 mg Oral Tablet Sustained Release - take 1 tablet by ORAL route 2 times per day As needed; 20 tablet. - Medication Reconciliation Form, Thank You Letter, Antibiotic Education, Prescription Opioid Use form. - Follow up: Mary Ames MD; When: 2 - 3 days; Reason: Recheck today's complaints, Continuance of care, Re-evaluation by your physician. Signatures: Dispatcher [employer] EDTrever Yeager MD MD cha Mickail, Joel, PA PA jmm Calderon, Audri, RN RN aa5 Magy Stevenson RN RN tr6 Corrections: (The following items were deleted from the chart) 10/17 16:26 15:33 10/17/2020 15:33 Discharged to Home. Impression: Vertigo; Vomiting. Condition is tr6 Stable. Forms are Medication Reconciliation Form, Thank You Letter, Antibiotic Education, Prescription Opioid Use. Follow up: Mary Ames; When: 2 - 3 days; Reason: Recheck today's complaints, Continuance of care, Re-evaluation by your physician. kaern
[2020-10-17 16:50] VITALS: BP 126/85; TEMP 98.2; O2SAT 96
--- NOTE | 2020-10-18 07:50 | EKG ---
Test Date: 2020-10-17 Test Time: 12:16:40 Supervisor Wound: GERONIMO MEASUREMENT RESULTS: Intervals: Rate: 66 TN: 132 QRSD: 94 QT: 440 QTc: 461 [place]: P: 55 TN: 132 QRS: 41 T: 36 INTERPRETIVE STATEMENTS: Normal sinus rhythm Normal ECG Compared to ECG 10/05/2020 06:49:09 No significant changes Electronically Signed On 10-18-20 07:48:24 CDT by Isai Hummel
== END 2020-10-17 16:26 | disposition home or self-care (01) ==
LOC: ER 10:52
DX: R42 Dizziness and giddiness (principal); Z88.0 Allergy status to penicillin; Z88.5 Allergy status to narcotic agent
CPT/HCPCS: 93005; 85025; 80048; 36415; 83735; 85610; 80076; 81003; 84484; 83880; 70450; 70496; 70498; 71045; 99283; Q9967; J3010; J7030; J2405

== ENCOUNTER 2021-03-11 18:36 | Emergency (ER) | payer OTHER ==
--- NOTE | 2021-03-11 20:04 | RAD REPORT ---
EXAM DESCRIPTION: Marianela Single View03/11/2021 7:54 pm CLINICAL HISTORY: Chest pain COMPARISON: October 2020 FINDINGS: The lungs appear clear of acute infiltrate. The heart is normal size IMPRESSION: No acute abnormalities displayed
[2021-03-11] MEDS ORDERED: dexAMETHasone 10 MG/ML VIAL ONE (20:07)
[2021-03-11 20:08] LABS: Absolute Lymphocytes (CBC) 2.6 K/uL (0.7-4.9); Basophils % 0.6 % (0-1.3); Hematocrit 41.3 % (36.0-45.0); Lymphocytes % 29.4 % (15.3-44.8); MPV 8.4 fL (7.6-11.3); RBC Red Blood Cell Count 4.63 M/uL (3.86-4.86)
[2021-03-11] MEDS ORDERED: KETOROLAC 30 MG/ML INJ ONE (20:08)
[2021-03-11 20:10] LABS: Protime INR 1.09
[2021-03-11 20:27] LABS: ALT/SGPT 107 U/L (12-78); AST/SGOT 39 U/L (15-37); Albumin 3.9 g/dL (3.4-5.0); Alkaline Phosphatase 66 U/L (45-117); BUN Blood Urea Nitrogen 8 mg/dL (7-18); Bicarbonate 29 mmol/L (21-32); Bilirubin Direct 0.1 mg/dL (0-0.2); Bilirubin Total 0.9 mg/dL (0.2-1.0); Glucose Level 84 mg/dL (74-106); Magnesium 2.3 mg/dL (1.8-2.4); Potassium 3.4 mmol/L (3.5-5.1); Protein, Total 7.1 g/dL (6.4-8.2); Sodium Level 143 mmol/L (136-145); Troponin (Emerg Dept Use Only) < 0.02 ng/mL (0.0-0.045)
[2021-03-11 20:28] LABS: NT PRO-BNP < 5 pg/mL (<125)
--- NOTE | 2021-03-11 20:54 | ER ---
Nurse's Notes [facility] Name: Lauren Miller Age: 36 yrs Sex: Female : 1985 Arrival Date: 03/11/2021 Time: 18:39 Bed 14 Private MD: Diagnosis: Acute pericarditis, unspecified Presentation: 03/11 18:42 Chief complaint: Patient states: Sudden onset of CP starting at 1000 am. Pain is now in ch5 left shoulder. Hx of pericarditis. Coronavirus screen: Client denies travel out of the [place] in the last 14 days. Client indicates they have traveled out of the [place] in the last 14 days. At this time, unable to obtain information related to travel outside the [place] Coronavirus screen: Vaccine status: Patient reports receiving the 2nd dose of the covid vaccine. Ebola Screen: Patient negative for fever greater than or equal to 101.5 degrees Fahrenheit, and additional compatible Ebola Virus Disease symptoms Patient denies exposure to infectious person. Patient denies travel to an Ebola-affected area in the 21 days before illness onset. Initial Sepsis Screen: Does the patient meet any 2 criteria? No. Patient's initial sepsis screen is negative. Does the patient have a suspected source of infection? No. Patient's initial sepsis screen is negative. Risk Assessment: Do you want to hurt yourself or someone else? Patient reports no desire to harm self or others. Onset of symptoms was March 11, 2021 at 10:00. 18:42 Method Of Arrival: Ambulatory 5 18:42 Acuity: DANIELLE 2 ch5 Triage Assessment: 18:45 General: Appears in no apparent distress. General: Behavior is calm. Pain: Complains of ch5 pain in posterior aspect of left shoulder. 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 - Social history:: Smoking status: Patient/guardian denies using tobacco, the patient reports quitting approximately 1 years ago, Patient uses alcohol, occasionally. Screenin:47 Abuse screen: Denies threats or abuse. Denies injuries from another. Nutritional ch5 screening: No deficits noted. Tuberculosis screening: No symptoms or risk factors identified. Fall Risk None identified. Assessment: 19:08 Pain: Complains of pain in left arm and posterior aspect of left shoulder. oh Cardiovascular: Reports chest pain, hx of pleural effusions, and pericarditis Chest pain. 19:10 General: Reports left sided chest pain radiating to left shoulder and arm. oh 19:11 Pain: Pain began 10 am. oh 19:12 Pain: Pain radiates to left arm and posterior aspect of left shoulder. oh 19:24 Reassessment: No changes from previously documented assessment. MAXINE Ledesma at dc2 bedside. 19:24 General: Appears in no apparent distress. comfortable, Behavior is calm, cooperative. dc2 Pain: Complains of pain in left upper chest wall that radiates to shoulder down to left hand. Neuro: No deficits noted. Cardiovascular: Reports chest pain, Denies shortness of breath, Rhythm is sinus rhythm. Respiratory: No deficits noted. GI: No deficits noted. : No deficits noted. Musculoskeletal: No deficits noted. 19:37 Reassessment: Radiology at bedside for chest xray. dc2 19:43 Reassessment: Pt difficult stick for IV and obtaining blood. Only green top able to be dc2 drawn and sent to lab at this time. Will continue to try for other needed blood. Vital Signs: 18:42 BP 137 / 84; Pulse 80; Resp 20; Temp 97.8; Pulse Ox 99% on R/A; Weight 90.26 kg; Height ch5 5 ft. 8 in. (172.72 cm); Pain 8/10; 19:25 BP 122 / 77; Pulse 75; Resp 17; Temp 97.5; Pulse Ox 100% ; Pain 5/10; dc2 20:58 BP 135 / 87; Pulse 79; Resp 17; Pulse Ox 100% on R/A; Pain 0/10; dc2 21:00 Temp 97.6(O); dc2 18:42 Body Mass Index 30.26 (90.26 kg, 172.72 cm) [facility] ED Course: 18:39 Patient arrived in ED. mr 18:45 Triage completed. [facility] 18:45 Arm band placed on right wrist. 5 18:47 Patient has correct armband on for positive identification. Bed in low position. Call [facility] light in reach. 18:48 Tani Sykes, RN is Primary Nurse. ch5 18:55 Cb Ledesma PA is PHCP. jr8 18:55 Trever Avery MD is Attending Physician. jr8 18:56 Primary Nurse role handed off by Tani Sykes RN oh 18:56 Jose Dodge, RN is Primary Nurse. oh 19:10 EKG done. oh 19:10 Patient maintains SpO2 saturation greater than 95% on room air. oh 19:11 equipment monitor phototypesetting on. Pulse ox on. NIBP on. oh 19:12 No provider procedures requiring assistance completed. oh 19:38 No apparent distress. Resting quietly. dc2 19:50 Inserted saline lock: 22 gauge in right forearm, using aseptic technique. Blood ds4 collected. 19:54 XRAY Chest (1 view) In Process Unspecified. EDMS 20:01 Basic Metabolic Panel Sent. dc2 20:01 CBC with Diff Sent. dc2 21:06 IV discontinued, intact, bleeding controlled, No redness/swelling at site. Pressure dc2 dressing applied. Administered Medications: 19:49 Drug: Decadron - Dexamethasone 10 mg Route: IVP; Site: right antecubital; sj1 21:05 Follow up: Response: No adverse reaction dc2 19:49 Drug: Ketorolac 30 mg Route: IVP; Site: right antecubital; sj1 21:05 Follow up: Response: Pain is decreased dc2 Outcome: 20:54 Discharge ordered by . jr8 21:07 Discharged to home ambulatory. dc2 21:07 Condition: stable 21:07 Discharge instructions given to patient, Instructed on discharge instructions, follow up and referral plans. Demonstrated understanding of instructions. 21:07 Patient left the ED. dc2 Signatures: Dispatcher [employer] [facility] Shila Sanchez Cb Ledesma PA PA jr8 Sheng Antonio ds4 Tani Sykes RN RN ch5 Yoana Dial RN RN dc2 Ama Real RN RN sj1 Jose Dodge, PEPPER RN oh Corrections: (The following items were deleted from the chart) 18:46 18:45 PMHx: paricardial plerual effusion; ch5 ch5 18:46 18:45 PMHx: pericarditis; ch5 ch5
--- NOTE | 2021-03-11 20:54 | EDPHYS ---
Physician Documentation [facility] Name: Lauren Miller Age: 36 yrs Sex: Female : 1985 Arrival Date: 03/11/2021 Time: 18:39 Bed 14 Private MD: ED Physician Trever Avery HPI: 03/11 20:06 This 36 yrs old Female presents to ER via Ambulatory with complaints of Chest jr8 Pain, Shoulder Pain. 20:06 This is a 36-year-old female that presented to the emergency room with chest pain that jr8 started abruptly today with radiation to the left shoulder. Patient stated that she has had multiple episodes this in the past and was related to an unknown pericarditis. Currently seeing the [employer] [facility] and has been checking up on her and evaluating her every 6 months for the chronic problem. Patient stated that pain is worse with laying down and improves with elevation. Stated that the symptoms feel like all of her other episodes in the past. Denies any other problems at this time.. 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 - Social history:: Smoking status: Patient/guardian denies using tobacco, the patient reports quitting approximately 1 years ago, Patient uses alcohol, occasionally. ROS: 20:06 Eyes: Negative for injury, pain, redness, and discharge, ENT: Negative for injury, jr8 pain, and discharge, Neck: Negative for injury, pain, and swelling, Respiratory: Negative for shortness of breath, cough, wheezing, and pleuritic chest pain, Abdomen/GI: Negative for abdominal pain, nausea, vomiting, diarrhea, and constipation, Back: Negative for injury and pain, MS/Extremity: Negative for injury and deformity, Skin: Negative for injury, rash, and discoloration, Neuro: Negative for headache, weakness, numbness, tingling, and seizure. 20:06 Cardiovascular: Positive for chest pain, Negative for edema, orthopnea, palpitations, paroxysmal nocturnal dyspnea. Exam: 20:06 Constitutional: This is a well developed, well nourished patient who is awake, alert, jr8 and in no acute distress. ENT: Nares patent. No nasal discharge, no septal abnormalities noted. Tympanic membranes are normal and external auditory canals are clear. Oropharynx with no redness, swelling, or masses, exudates, or evidence of obstruction, uvula midline. Mucous membranes moist. Neck: Trachea midline, no thyromegaly or masses palpated, and no cervical lymphadenopathy. Supple, full range of motion without nuchal rigidity, or vertebral point tenderness. No Meningismus. Chest/axilla: Normal chest wall appearance and motion. Nontender with no deformity. No lesions are appreciated. Cardiovascular: Regular rate and rhythm with a normal S1 and S2. No gallops, murmurs, or rubs. Normal PMI, no JVD. No pulse deficits. Respiratory: Lungs have equal breath sounds bilaterally, clear to auscultation and percussion. No rales, rhonchi or wheezes noted. No increased work of breathing, no retractions or nasal flaring. Abdomen/GI: Soft, non-tender, with normal bowel sounds. No distension or tympany. No guarding or rebound. No evidence of tenderness throughout. Back: No spinal tenderness. No costovertebral tenderness. Full range of motion. Skin: Warm, dry with normal turgor. Normal color with no rashes, no lesions, and no evidence of cellulitis. MS/ Extremity: Pulses equal, no cyanosis. Neurovascular intact. Full, normal range of motion. Neuro: Awake and alert, GCS 15, oriented to person, place, time, and situation. Cranial nerves II-XII grossly intact. Motor strength 5/5 in all extremities. Sensory grossly intact. Vital Signs: 18:42 BP 137 / 84; Pulse 80; Resp 20; Temp 97.8; Pulse Ox 99% on R/A; Weight 90.26 kg; Height ch5 5 ft. 8 in. (172.72 cm); Pain 8/10; 19:25 BP 122 / 77; Pulse 75; Resp 17; Temp 97.5; Pulse Ox 100% ; Pain 5/10; dc2 20:58 BP 135 / 87; Pulse 79; Resp 17; Pulse Ox 100% on R/A; Pain 0/10; dc2 21:00 Temp 97.6(O); dc2 18:42 Body Mass Index 30.26 (90.26 kg, 172.72 cm) [facility] Procedures: 20:49 Ultrasound: Type: Modified Cardiac exam, Bedside cardiac ultrasonography completed to [facility] ensure there was no large pericardial effusion. Pericardium intact with no fluid around the pericardium noted.. MDM: 18:56 Patient medically screened. [facility] 20:49 Data reviewed: vital signs, nurses notes, lab test result(s), EKG, radiologic studies, [facility] plain films. Data interpreted: Pulse oximetry: on room air is 100 %. Interpretation: normal. Counseling: I had a detailed discussion with the patient and/or guardian regarding: the historical points, exam findings, and any diagnostic results supporting the discharge/admit diagnosis, lab results, radiology results, the need for outpatient follow up, a clearing hand, to return to the emergency department if symptoms worsen or persist or if there are any questions or concerns that arise at home. 20:49 ED course: EKG, chest x-ray, bedside ultrasound, blood work without acute any acute [facility] findings. Discussed this with patient that it is probably a mild pericarditis as which she had experienced in the past. Otherwise no significant findings on exam. Patient feeling significantly better post steroid and anti-inflammatory. Recommended that [facility] 48 hours. If she were to have fevers, shortness of breath or worsening of chest pain to come back immediately for further evaluation or to [facility]. Patient good with this and I will continue to have patient on steroids and anti-inflammatory upon discharge. 03/11 18:56 Order name: Basic Metabolic Panel [facility] 03/11 18:56 Order name: CBC with Diff [facility] 03/11 18:56 Order name: LFT's; Complete Time: 20:32 [facility] 03/11 18:56 Order name: Magnesium; Complete Time: 20:32 [facility] 03/11 18:56 Order name: NT PRO-BNP; Complete Time: 20:32 [facility] 03/11 18:56 Order name: PT-INR; Complete Time: 20:21 03/11 18:56 Order name: Troponin (emerg Dept Use Only); Complete Time: 20:32 03/11 18:56 Order name: XRAY Chest (1 view); Complete Time: 20:07 [facility] 03/11 18:56 Order name: EKG; Complete Time: 18:57 [facility] 03/11 18:56 Order name: ESR; Complete Time: 20:41 [facility] 03/11 18:56 Order name: Basic Metabolic Panel; Complete Time: 20:32 [facility] 03/11 18:56 Order name: CBC with Automated Diff; Complete Time: 20: [facility] 03/11 18:56 Order name: Cardiac monitoring; Complete Time: 20: [facility] 03/11 18:56 Order name: EKG - Nurse/Tech; Complete Time: 20: [facility] 03/11 18:56 Order name: IV Saline Lock; Complete Time: 20: [facility] 03/11 18:56 Order name: Labs collected and sent; Complete Time: 20: [facility] 03/11 18:56 Order name: O2 Per Protocol; Complete Time: 20: [facility] 03/11 18:56 Order name: O2 Sat Monitoring; Complete Time: 20: [facility] Administered Medications: 19:49 Drug: Decadron - Dexamethasone 10 mg Route: IVP; Site: right antecubital; sj1 21:05 Follow up: Response: No adverse reaction dc2 19:49 Drug: Ketorolac 30 mg Route: IVP; Site: right antecubital; sj1 21:05 Follow up: Response: Pain is decreased dc2 Disposition Summary: 03/11/21 20:54 Discharge Ordered Location: Home jr Problem: new jr8 Symptoms: have improved jr8 Condition: Stable jr8 Diagnosis - Acute pericarditis, unspecified jr8 Followup: jr8 - With: Private Physician - When: 1 - 2 days - Reason: Recheck today's complaints, Continuance of care, Re-evaluation by your physician Discharge Instructions: - Discharge Summary Sheet jr8 - Pericarditis 8 Forms: - Medication Reconciliation Form jr8 - Thank You Letter jr8 - Antibiotic Education jr8 - Prescription Opioid Use jr8 Prescriptions: - indomethacin 50 mg Oral capsule - take 1 capsule by ORAL route 2 times per day with food; 14 capsule; Refills: 0, jr8 Product Selection Permitted - Prednisone 20 mg Oral Tablet - take 2 tablets by ORAL route once daily for 5 days; 10 tablet; Refills: 0, jr8 Product Selection Permitted Addendum: 03/13/2021 10:58 Co-signature as Attending Physician, Trever Avery MD I agree with the assessment and c gregg plan of care. Signatures: Dispatcher [employer] Trever Bardales MD MD cha Roszak, Josh PA PA jr8 Tani Sykes RN RN ch5 Ama Real RN RN sj1 Yoana Dial RN dc2 Corrections: (The following items were deleted from the chart) 03/11 18:46 18:45 PMHx: paricardial plerual effusion; ch5 ch5 18:46 18:45 PMHx: pericarditis; ch5 ch5
[2021-03-11 21:12] VITALS: O2SAT 100
[2021-03-11 21:13] VITALS: BP 135/87
[2021-03-11 21:14] VITALS: TEMP 97.6
--- NOTE | 2021-03-12 16:59 | EKG ---
Test Date: 2021-03-11 Test Time: 19:01:43 [place] Fe[employer] Trimmer: JULIA MEASUREMENT RESULTS: Intervals: Rate: 79 GA: 124 QRSD: 94 QT: 398 QTc: 456 [place]: P: 36 GA: 124 QRS: 23 T: 32 INTERPRETIVE STATEMENTS: Normal sinus rhythm Normal ECG Compared to ECG 10/17/2020 12:16:40 No significant changes Electronically Signed On 03-12-21 16:57:54 CDT by Isai Hummel
== END 2021-03-11 21:07 | disposition home or self-care (01) ==
LOC: ER 18:36
DX: I30.9 Acute pericarditis, unspecified (principal)
CPT/HCPCS: 93005; 85025; 80048; 36415; 83735; 85610; 80076; 85652; 84484; 83880; 71045; 96375; 96374; 99285; J1100